=== PATIENT | male | born 1995 | race Caucasian/White ===

== ENCOUNTER 2016-10-18 17:35 | Inpatient (IN) | payer MEDICAID ==
[~2016-10-18] VITALS: Ht 198.1 cm; Wt 107.6 kg
[2016-10-18 17:40] VITALS: O2SAT 100
[2016-10-18 17:47] VITALS: O2SAT 100
[2016-10-18] MEDS ORDERED: MORPHINE SULFATE 8 MG/ML INJ ONE ×2 (17:48→19:52)
[2016-10-18 18:00] LABS: AUTOMATED NEUTROPHIL # 4.1 TH/MM3 (1.8-7.7); BASOPHIL # 0.1 TH/MM3 (0-0.2); BASOPHIL % 1.2 % (0.0-2.0); EOSINOPHIL # 0.1 TH/MM3 (0-0.4); EOSINOPHIL % 0.8 % (0.0-4.0); HEMATOCRIT 42.8 % (39.0-51.0); HEMO FLAGS DIFF FINAL; LYMPH % 16.8 % (9.0-44.0); LYMPHOCYTE # 1.1 TH/MM3 (1.0-4.8); MEAN CELL VOLUME 87.3 FL (80.0-100.0); MEAN CORPUSCULAR HGB CONC 35.5 % (32.0-36.0); MONO % 16.5 % (0.0-8.0); NEUT % 64.7 % (16.0-70.0); PLATELET COUNT 143 TH/MM3 (150-450); RED BLOOD COUNT 4.91 MIL/MM3 (4.50-5.90); RED CELL DISTRIBUTION WIDTH 12.7 % (11.6-17.2); WHITE BLOOD COUNT 6.3 TH/MM3 (4.0-11.0)
[2016-10-18 18:03] LABS: I-STAT POTASSIUM 4.6 MMOL/L (3.5-4.9)
[2016-10-18 18:12] LABS: APTT (PATIENT) 22.9 SEC (24.3-30.1); INTERNATIONAL NORMALIZED RATIO 1.1 RATIO; PROTHROMBIN TIME - PATIENT 12.2 SEC (9.8-11.6)
--- NOTE | 2016-10-18 18:26 | RADRPT ---
EXAM DATE/TIME: 10/18/2016 17:53 [facility] COMPARISON: No previous studies available for comparison. INDICATIONS : Fell off trampoline hit right side of head. RADIATION DOSE: 55.42 CTDIvol (mGy) MEDICAL HISTORY : Unable to obtain SURGICAL HISTORY : Unable to obtain ENCOUNTER: Initial ACUITY: 1 day PAIN SCALE: 2/10 LOCATION: cranial TECHNIQUE: Multiple contiguous axial images were obtained of the head. Using automated exposure control and adj ustment of the mA and/or kV according to patient size, radiation dose was kept as low as reasonably a chievable to obtain optimal diagnostic quality images. DICOM format image data is available electro nically for review and comparison. FINDINGS: CEREBRUM: The ventricles are normal for age. No evidence of midline shift, mass lesion, hemorrhage or acute in farction. No extra-axial fluid collections are seen. POSTERIOR FOSSA: The cerebellum and brainstem are intact. The 4th ventricle is midline. The cerebellopontine angle i s unremarkable. EXTRACRANIAL: The visualized portion of the orbits is intact. SKULL: The calvaria is intact. No evidence of skull fracture. CONCLUSION: Normal examination for a patient of this age. Tray Painting MD on October 18, 2016 at 18:22 Board Certified Radiologist. This report was verified electronically.
--- NOTE | 2016-10-18 18:29 | RADRPT ---
EXAM DATE/TIME: 10/18/2016 17:53 [facility] COMPARISON: No previous studies available for comparison. INDICATIONS : Fell off trampoline hit right side of head. RADIATION DOSE: 30.80 CTDIvol (mGy) MEDICAL HISTORY : Unable to obtain SURGICAL HISTORY : Unable to obtain ENCOUNTER: Initial ACUITY: 1 day PAIN SCALE: 2/10 LOCATION: cranial TECHNIQUE: Volumetric scanning of the cervical spine was performed. Multiplanar reconstructions in the sagittal, coronal and oblique axial planes were performed. Using automated exposure control and adjustment o f the mA and/or kV according to patient size, radiation dose was kept as low as reasonably achievable to obtain optimal diagnostic quality images. DICOM format image data is available electronically f or review and comparison. FINDINGS: VERTEBRAE: Normal vertebral body height. ALIGNMENT: No evidence of subluxation. C2-C3: The bony spinal canal is normal in size. No evidence of disc bulge or herniation. The neural forami na are bilaterally patent. C3-C4: The bony spinal canal is normal in size. No evidence of disc bulge or herniation. The neural forami na are bilaterally patent. C4-C5: The bony spinal canal is normal in size. No evidence of disc bulge or herniation. The neural forami na are bilaterally patent. C5-C6: The bony spinal canal is normal in size. No evidence of disc bulge or herniation. The neural forami na are bilaterally patent. C6-C7: The bony spinal canal is normal in size. No evidence of disc bulge or herniation. The neural forami na are bilaterally patent. C7-T1: The bony spinal canal is normal in size. No evidence of disc bulge or herniation. The neural forami na are bilaterally patent. CONCLUSION: Normal examination. Tray Painting MD on October 18, 2016 at 18:25 Board Certified Radiologist. This report was verified electronically.
[2016-10-18 18:30] VITALS: BP 171/79; PULSE 85; RESP 18; O2SAT 100
--- NOTE | 2016-10-18 18:36 | RADRPT ---
EXAM DATE/TIME: 10/18/2016 17:28 [facility] COMPARISON: No previous studies available for comparison. INDICATIONS : Trauma fell off trampoline. MEDICAL HISTORY : None. SURGICAL HISTORY : None. ENCOUNTER: Initial ACUITY: 1 day PAIN SCORE: 3/10 LOCATION: Bilateral chest FINDINGS: A single view of the chest demonstrates the lungs to be symmetrically aerated without evidence of mas s, infiltrate or effusion. The cardiomediastinal contours are unremarkable. Osseous structures are intact. CONCLUSION: Normal examination. Tray Painting MD on October 18, 2016 at 18:34 Board Certified Radiologist. This report was verified electronically.
--- NOTE | 2016-10-18 18:36 | RADRPT ---
EXAM DATE/TIME: 10/18/2016 17:28 [facility] COMPARISON: No previous studies available for comparison. INDICATIONS : Trauma fell off trampoline. MEDICAL HISTORY : None. SURGICAL HISTORY : None. ENCOUNTER: Initial ACUITY: 1 day PAIN SCORE: 3/10 LOCATION: Pelvis. FINDINGS: A single frontal view of the pelvis demonstrates no evidence of fracture. The bony pelvic ring is in tact. Bony mineralization is normal. The soft tissues are intact. CONCLUSION: Unremarkable examination of the pelvis. Tray Painting MD on October 18, 2016 at 18:34 Board Certified Radiologist. This report was verified electronically.
--- NOTE | 2016-10-18 19:04 | PD.CONS ---
HPI Service neurosurery Consult Requested By Dr Rahman Primary Care Physician No Primary Care Physician Past Family Social History Active Ordered Medications Current Medications Morphine Sulfate (Morphine Inj) 8 mg STK-MED ONCE .ROUTE ; Start 10/18/16 at 17: 48; Stop 10/18/16 at 17:49; Status DC Physical Exam Vital Signs Vital Signs Date Time Temp Pulse Resp B/P Pulse Ox O2 Delivery O2 Flow Rate FiO2 10/18/16 17:47 100 3.00 Laboratory Laboratory Tests Test 10/18/16 17:40 White Blood Count 6.3 Red Blood Count 4.91 Hemoglobin 15.2 Bedside Hemoglobin 15.0 Hematocrit 42.8 Bedside Hematocrit 44.0 Mean Corpuscular Volume 87.3 Mean Corpuscular Hemoglobin 31.0 Mean Corpuscular Hemoglobin 35.5 Concent Red Cell Distribution Width 12.7 Platelet Count 143 Mean Platelet Volume 12.3 Neutrophils (%) (Auto) 64.7 Lymphocytes (%) (Auto) 16.8 Monocytes (%) (Auto) 16.5 Eosinophils (%) (Auto) 0.8 Basophils (%) (Auto) 1.2 Neutrophils # (Auto) 4.1 Lymphocytes # (Auto) 1.1 Monocytes # (Auto) 1.0 Eosinophils # (Auto) 0.1 Basophils # (Auto) 0.1 CBC Comment DIFF FINAL Differential Comment Prothrombin Time 12.2 Prothromb Time International 1.1 Ratio Activated Partial 22.9 Thromboplast Time Bedside Sodium 142 Bedside Potassium 4.6 Bedside Chloride 103 Bedside Blood Urea Nitrogen 16 Bedside Creatinine 1.1 Bedside Glucose 94 Blood Type O POSITIVE Antibody Screen NEGATIVE Result Diagram: 10/18/161739 Imaging Last Impressions Pelvis X-Ray 10/18/161746 Signed Impressions: Service Date/Time: Tuesday, October 18, 2016 17:28 - CONCLUSION: Unremarkable examination of the pelvis. Tray Painting MD Head CT 10/18/161746 Signed Impressions: Service Date/Time: Tuesday, October 18, 2016 17:53 - CONCLUSION: Normal examination for a patient of this age. Tray Painting MD Chest X-Ray 10/18/161746 Signed Impressions: Service Date/Time: Tuesday, October 18, 2016 17:28 - CONCLUSION: Normal examination. Tray Painting MD Cervical Spine CT 10/18/161746 Signed Impressions: Service Date/Time: Tuesday, October 18, 2016 17:53 - CONCLUSION: Normal examination. Tray Painting MD Attending Statement Neuro. Continue neuro checks in a serial fashion. A follow-up CT MRI C spine will be obtained Pulmonary. aggressive pulmonary toilette, nasotracheal suction, and breathing treatments with nebulizers. Daily PT and OT Nutrition. Tolerating Oral diet Renal. monitor closely urine output, BUN and creatinine Endocrine. Monitor serial Acu checks and SSI as needed in detail ID monitor for signs of infection Protonix for stress ulcer prophylaxis Finesse hose and SCD's for DVT prophylaxis Mynor Mcclain MD Oct 18, 2016 19:04
--- NOTE | 2016-10-18 19:15 | PD ---
HPI Chief Complaint: Trauma (Alert) Time Seen by Provider: 17:39 Travel History International Travel<30 days: No Contact w/Intl Traveler<30days: No History of Present Illness HPI This is a patient who presents to the emergency department having been jumping on a trampoline at his work. He fell off the trampoline and landed on a concrete surface where he hit his back and neck. He did Lose consciousness for several seconds and then woke back up. He drove himself home but when he got home he started to feel paresthesias in the right side of his body extending from his chest all the way down to his legs associated with some moderate severity pain, constant. He also feels weak in the right arm and right leg. He also has some spots in his vision affecting his right eye. [facility] Past Medical History Medical History: Denies Significant Hx Social History Alcohol Use: No Substance Use: No Review of Systems Except as stated in HPI: all other systems reviewed are Neg Physical Exam Narrative GENERAL:Well appearing, no acute distress SKIN: Focused skin assessment warm and dry. HEAD: Atraumatic. Normocephalic. EYES: Pupils equal and round. No injection or drainage. ENT: Moist mucous membranes NECK: Trachea midline. Cervical collar is in place. CARDIOVASCULAR: Regular rate and rhythm. No murmur appreciated. RESPIRATORY: Clear to auscultation. Breath sounds equal bilaterally. GASTROINTESTINAL: Abdomen soft, non-tender, nondistended. MUSCULOSKELETAL: No obvious deformities. NEUROLOGICAL: Awake and alert. No obvious cranial nerve deficits. 4+ out of 5 strength in the right upper and right lower extremity, decreased sensation to light touch in the right upper chest and right lower extremity. PSYCHIATRIC: Appropriate mood and affect; insight and judgment normal. Data Data Last Documented VS Vital Signs Date Time Temp Pulse Resp B/P Pulse Ox O2 Delivery O2 Flow Rate FiO2 10/18/16 17:47 100 3.00 Orders Ed Poc Ultrasound (10/18/16 ) I-Stat Profile (10/18/16 17:47) I-Stat Creatinine (10/18/16 17:47) Complete Blood Count With Diff (10/18/16 17:47) Prothrombin Time / Inr (Pt) (10/18/16 17:47) Act Partial Throm Time (Ptt) (10/18/16 17:47) Type And Screen (10/18/16 17:47) Chest, Single Ap (10/18/16 17:47) Pelvis, Ap Only (Routine) (10/18/16 17:47) Ct Brain W/O Iv Contrast(Rout) (10/18/16 17:47) Ct Cerv Spine W/O Contrast (10/18/16 17:47) Iv Access Insert/Monitor (10/18/16 17:47) Ecg Monitoring (10/18/16 17:47) Oximetry (10/18/16 17:47) Oxygen Administration (10/18/16 17:47) Morphine Inj (Morphine Inj) (10/18/16 17:48) Admit Order (Ed Use Only) (10/18/16 18:49) Labs Laboratory Tests Test 10/18/16 17:40 White Blood Count 6.3 TH/MM3 Red Blood Count 4.91 MIL/MM3 Hemoglobin 15.2 GM/DL Bedside Hemoglobin 15.0 G/DL Hematocrit 42.8 % Bedside Hematocrit 44.0 % Mean Corpuscular Volume 87.3 FL Mean Corpuscular Hemoglobin 31.0 PG Mean Corpuscular Hemoglobin 35.5 % Concent Red Cell Distribution Width 12.7 % Platelet Count 143 TH/MM3 Mean Platelet Volume 12.3 FL Neutrophils (%) (Auto) 64.7 % Lymphocytes (%) (Auto) 16.8 % Monocytes (%) (Auto) 16.5 % Eosinophils (%) (Auto) 0.8 % Basophils (%) (Auto) 1.2 % Neutrophils # (Auto) 4.1 TH/MM3 Lymphocytes # (Auto) 1.1 TH/MM3 Monocytes # (Auto) 1.0 TH/MM3 Eosinophils # (Auto) 0.1 TH/MM3 Basophils # (Auto) 0.1 TH/MM3 CBC Comment DIFF FINAL Differential Comment Prothrombin Time 12.2 SEC Prothromb Time International 1.1 RATIO Ratio Activated Partial 22.9 SEC Thromboplast Time Bedside Sodium 142 MMOL/L Bedside Potassium 4.6 MMOL/L Bedside Chloride 103 MMOL/L Bedside Blood Urea Nitrogen 16 MG/DL Bedside Creatinine 1.1 MG/DL Bedside Glucose 94 MG/DL Blood Type O POSITIVE Antibody Screen NEGATIVE MDM Medical Screen Exam Complete: Yes Emergency Medical Condition: Yes Differential Diagnosis Cervical spine fracture, cervical spine contusion, subdural hematoma, epidural hematoma, subarachnoid hemorrhage Narrative Course This is a patient who presents to the emergency department with an injury falling off a trampoline. He has objective neurologic deficits on exam. IV access was established in the trauma bay. Chest x-ray and pelvic film were obtained which were reassuring. Patient was transferred to CT where her head and cervical spine CTs were reassuring. Patient will be admitted to the intensive care unit per Dr. Mcclain for close monitoring in the setting of a possible cervical spine injury and MRI will be obtained. Trauma Alert - Level One Trauma Alert Level One: Full trauma team activate, Patient evaluated, Trauma surgeon summoned Time Surgeon Summoned: 17:23 Physician Communication Discussed with Dr. Beltre and Dr. Mcclain Diagnosis Diagnosis: Primary Impression: Numbness and tingling Admitting Physician Requests: Admit Yenni Rahman MD Oct 18, 2016 19:15
[2016-10-18 19:27] VITALS: BP 148/77; PULSE 78; RESP 20; O2SAT 100
[2016-10-18] MEDS ORDERED: MISCELLANEOUS NURSING INFORMATION XX SCH (19:45)
[2016-10-18] MEDS ORDERED: ENALAPRILAT 1.25 MG/ML VIAL IV PRN (19:45)
[2016-10-18] MEDS ORDERED: ONDANSETRON HCL 4 MG/2 ML VIAL IV PRN (19:45)
[2016-10-18] MEDS ORDERED: ACETAMINOPHEN 325 MG TAB PO PRN (19:45)
[2016-10-18] MEDS ORDERED: MAGNESIUM HYDROXIDE SUSP 30 ML CUP PO PRN (19:45)
[2016-10-18] MEDS ORDERED: SODIUM CHLORIDE 0.9% FLUSH 10 ML FLUSH IV FLUSH PRN (19:45)
[2016-10-18] MEDS ORDERED: MORPHINE SULFATE 4 MG/ML INJ IV PRN (19:45)
[2016-10-18] MEDS ORDERED: CHLORHEXIDINE GLUCONATE 2 % 1 PACK (2 CLOTHS) TOP PRN (19:45)
[2016-10-18 19:51] VITALS: O2SAT 98
[2016-10-18] MEDS ORDERED: DOCUSATE SODIUM 100 MG CAP PO SCH (21:00)
[2016-10-18] MEDS ORDERED: BACITRACIN TOP OINT 15 GM TUBE TOP SCH (21:00)
--- NOTE | 2016-10-18 21:40 | RADRPT ---
EXAM DATE/TIME: 10/18/2016 20:36 [facility] COMPARISON: No previous studies available for comparison. INDICATIONS : Radiculopathy. Fell off trampoline hit right side of head. MEDICAL HISTORY : None. SURGICAL HISTORY : None. ENCOUNTER: Subsequent ACUITY: 1 day PAIN SCORE: 0/10 LOCATION: TECHNIQUE: Multiplanar, multisequence MRI examination of the cervical spine was performed. FINDINGS: VERTEBRAE: Normal vertebral body height. Homogeneous marrow signal. ALIGNMENT: No evidence of subluxation. CORD: Normal configuration and signal. POST FOSSA: The cerebellar tonsils are normal in position. C2-C3: The thecal sac has a normal configuration. There is no evidence of disc herniation or spinal canal s tenosis. The neural foramina are patent bilaterally. C3-C4: There is a tiny right lateral disc bulge or protrusion with mild encroachment on the right lateral re cess and neural foramen. C4-C5: The thecal sac has a normal configuration. There is no evidence of disc herniation or spinal canal s tenosis. The neural foramina are patent bilaterally. C5-C6: The thecal sac has a normal configuration. There is no evidence of disc herniation or spinal canal s tenosis. The neural foramina are patent bilaterally. C6-C7: The thecal sac has a normal configuration. There is no evidence of disc herniation or spinal canal s tenosis. The neural foramina are patent bilaterally. C7-T1: The thecal sac has a normal configuration. There is no evidence of disc herniation or spinal canal s tenosis. The neural foramina are patent bilaterally. CONCLUSION: 1. Small right lateral disc bulge or protrusion at C3-4 with mild encroachment on the right lateral r ecess and neural foramen. Slight reversal of normal cervical lordosis. No fracture or spondylolisthes is. No cord impingement or canal stenosis. Tray Painting MD on October 18, 2016 at 21:35 Board Certified Radiologist. This report was verified electronically.
[2016-10-18 22:00] VITALS: PULSE 85
[2016-10-18] MEDS ORDERED: PANTOPRAZOLE SODIUM 40 MG VIAL IVP SCH (22:00)
[2016-10-18] MEDS: SODIUM CHLOR 0.9% 1000 ML INJ 1,000 ML IV SCH (22:04)
--- NOTE | 2016-10-18 22:36 | MH ---
cc: HOLLIE LEARY MD DATE OF ADMISSION 10/18/2016 CHIEF COMPLAINT Trauma alert HISTORY OF PRESENT ILLNESS The patient is a 21-year-old male who was brought to [facility] as a trauma alert by EMS. The patient's criteria was that he had fallen from height. Per EMS report and Patent history, he fell off a trampoline and landed on a concrete surface and hit his head and back. He lost consciousness for a brief period of time. The patient declined medical evaluation, drove himself home and then developed peristalsis on his right side as well as some complaint of weakness as well as seeing spots in his right eye. Due to these symptoms, he called 9-1-1. The patient was hemodynamically stable, GCS 15, moving all extremities grossly in transport. This patient was found to have intact airway breathing and circulation upon evaluation. The patient denies any shortness of breath, chest pain or abdominal pain. PAST MEDICAL HISTORY The patient denies. PAST SURGICAL HISTORY None. REVIEW OF SYSTEMS Negative except for pertinent positives mentioned above in the history of present illness. SOCIAL HISTORY The patient denies alcohol, tobacco or drug use. FAMILY HISTORY Noncontributory. ALLERGIES No known drug allergies. MEDICATIONS No home medications. PHYSICAL EXAMINATION VITAL SIGNS: Pulse ox 100%. The patient is normotensive and heart rate is less than 100. GENERAL: The patient is a well-developed, well-nourished male in no acute distress. HEENT: Head normocephalic, atraumatic. Pupils round, react and accommodate to light. Sclerae anicteric. Oral cavity is clear. Airway is patent. No scalp lacerations. Face is stable. There is no malocclusion. Cervical collar is in place. The patient has tenderness in the midline of cervical spine without deformity. Trachea is midline. No JVD. CHEST: Chest wall clear without deformity. Breath sounds present bilaterally. HEART: Regular rate and rhythm. ABDOMEN: Soft, nondistended. No organomegaly. No seatbelt sign. PELVIS: Stable without deformity. EXTREMITIES: No clubbing, cyanosis or edema. No deformity of the four extremities. BACK: No thoracic or lumbar tenderness. Sensation intact. NEUROLOGIC: The patient has GCS 15. The patient describes decreased vision in the right eye. The patient has sensation four extremities. 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 Cranial nerves II-XII grossly intact. LABORATORY FINDINGS Hemoglobin 15.2. IMAGING STUDIES CT scan of the patient's head is negative for intracranial injury. CT scan of the patient's cervical spine is negative for fracture. Chest x-ray no acute process. The pelvis was no fracture. ASSESSMENT AND PLAN This is a 23-year-old male status post fall from a trampoline, positive LOC, now with right-sided vision changes, right-sided paresthesias and weakness. Patient is hemodynamically stable. Airway is patent. 1. Injuries - Concussion. CT scan the patient's head is negative. We will place the patient in observation and perform neuro monitoring and neuro checks 2. Paresthesias and right-sided weakness as well as potential vision changes. We will obtain neurosurgical consultation urgently and Dr. Mcclain did come evaluate the patient. At this time, he recommended MRI for further evaluation. We will order MRI of the cervical spine with contrast Stat for further evaluation. We will maintain the patient in log wall only with activity with a cervical collar in place. We will give appropriate pain medications as needed and supportive care. MD FLAKITO Brizuela/ /9:42 PM /10:14 PM
[2016-10-19] VITALS (10 sets, daily range): BP systolic 126–136; BP diastolic 56–78; PULSE 48–83; RESP 12–22; TEMP 97.5–98.6; O2SAT 96–99
[2016-10-19] MEDS ORDERED: ACETAMINOPHEN 1000 MG/100 ML VIAL IV ONE (00:30)
[2016-10-19] MEDS ORDERED: CHLORHEXIDINE GLUCONATE 2 % 1 PACK (2 CLOTHS) TOP SCH (04:00)
[2016-10-19 04:47] LABS: AUTOMATED NEUTROPHIL # 2.8 TH/MM3 (1.8-7.7); BASOPHIL # 0.1 TH/MM3 (0-0.2); BASOPHIL % 1.2 % (0.0-2.0); EOSINOPHIL # 0.1 TH/MM3 (0-0.4); EOSINOPHIL % 1.1 % (0.0-4.0); HEMATOCRIT 44.6 % (39.0-51.0); HEMO FLAGS DIFF FINAL; LYMPH % 26.6 % (9.0-44.0); LYMPHOCYTE # 1.4 TH/MM3 (1.0-4.8); MEAN CORPUSCULAR HEMOGLOBIN 30.3 PG (27.0-34.0); MONO % 19.8 % (0.0-8.0); NEUT % 51.3 % (16.0-70.0); PLATELET COUNT 133 TH/MM3 (150-450); RED BLOOD COUNT 5.01 MIL/MM3 (4.50-5.90); RED CELL DISTRIBUTION WIDTH 12.8 % (11.6-17.2); WHITE BLOOD COUNT 5.4 TH/MM3 (4.0-11.0)
[2016-10-19 05:07] LABS: BICARBONATE 24.2 MEQ/L (21.0-32.0); POTASSIUM 3.8 MEQ/L (3.5-5.1)
[2016-10-19] MEDS: SODIUM CHLOR 0.9% 1000 ML INJ 1,000 ML IV SCH (07:00)
[2016-10-19] MEDS ORDERED: DOCUSATE SODIUM 50 MG/SENNA 8.6 MG TAB PO SCH (09:00)
[2016-10-19] MEDS ORDERED: ACETAMINOPHEN/HYDROcodone 325 MG/5 MG TAB PO PRN (09:30)
[2016-10-19] MEDS ORDERED: traMADol HCL 50 MG TAB PO PRN (09:30)
[2016-10-19] MEDS ORDERED: METHOCARBAMOL 500 MG TAB PO SCH (10:00)
--- NOTE | 2016-10-19 12:46 | RADRPT ---
EXAM DATE/TIME: 10/19/2016 12:19 [facility] COMPARISON: No previous studies available for comparison. INDICATIONS : Sharp pain on right side when turning neck since yesterday. MEDICAL HISTORY : None. SURGICAL HISTORY : None. ENCOUNTER: Subsequent ACUITY: 2 days PAIN SCORE: 7/10 LOCATION: lateral neck FINDINGS: Flexion and extension views of the cervical spine were performed. The alignment of the cervical vert ebral bodies is maintained in flexion and extension and there is no evidence of subluxation. The pre vertebral soft tissues are normal in thickness. CONCLUSION: Unremarkable flexion and extension examination of the cervical spine. Del Herrera MD on October 19, 2016 at 12:44 Board Certified Radiologist. This report was verified electronically.
--- NOTE | 2016-10-19 13:19 | HHI.CCPN ---
Subjective Brief History 21-year-old male fell off the trampoline and hit his head against the concrete Complaining about pain in the neck and apparently some initial paresthesia which now disappeared Patient had the Bowie J collar placed underwent CT and MRI of the spine both of which are negative for major injury Patient remained in the ICU overnight 24 Hour Review/Hospital Course This morning patient is awake alert oriented neurologically fully intact Motoric fully intact with normal strength bilateral Cessation bilateral preserved Normal deep tendon reflexes no pathologic reflexes Flexion-extension C-spine no abnormality DC patient today with follow-up when necessary with neurosurgery Objective Vital Signs Date Time Temp Pulse Resp B/P Pulse Ox O2 Delivery O2 Flow Rate FiO2 10/19/16 12:00 97.5 61 12 133/63 96 10/19/16 08:00 Room Air 10/19/16 07:26 21 10/18/16 19:27 4 Intake and Output 10/18/16 10/18/16 10/19/16 08:00 16:00 00:00 Intake Total 170 ml Balance 170 ml Result Diagram: 10/19/16 0347 10/19/16 0347 Imaging Last 24 hours Impressions Cervical Spine X-Ray 10/19/16 0000 Signed Impressions: Service Date/Time: Wednesday, October 19, 2016 12:19 - CONCLUSION: Unremarkable flexion and extension examination of the cervical spine. Del Herrera MD Pelvis X-Ray 10/18/161746 Signed Impressions: Service Date/Time: Tuesday, October 18, 2016 17:28 - CONCLUSION: Unremarkable examination of the pelvis. Tray Painting MD Head CT 10/18/161746 Signed Impressions: Service Date/Time: Tuesday, October 18, 2016 17:53 - CONCLUSION: Normal examination for a patient of this age. Tray Painting MD Chest X-Ray 10/18/161746 Signed Impressions: Service Date/Time: Tuesday, October 18, 2016 17:28 - CONCLUSION: Normal examination. Tray Painting MD Cervical Spine CT 10/18/161746 Signed Impressions: Service Date/Time: Tuesday, October 18, 2016 17:53 - CONCLUSION: Normal examination. Tray Painting MD Exam [employer] Motoric fully intact with normal strength bilateral Cessation bilateral preserved Normal deep tendon reflexes no pathologic reflexes Flexion-extension C-spine no abnormality DC patient today with follow-up when necessary with neurosurgery Hemodynamic/Cardiac Hemodynamically stable Pulmonary/Respiratory Bilateral good breath sounds Abdomen/GI Nutrition Abdomen soft Assessment and Plan Attestation In the face of normal CT scan of the neck and C-spine, no major traumatic abnormality on MRI and normal flexion and extension views, patient will be discharged with soft collar and follow-up with neurosurgery Critical care 35 minutes Milton Lees MD Oct 19, 2016 13:19
[2016-10-19] MEDS ORDERED: HYDR-3516 PO (13:29)
[2016-10-19] MEDS ORDERED: METH500T3 PO (13:33)
--- NOTE | 2016-10-19 13:45 | HHI.DS ---
Discharge Summary Admission Date Oct 18, 2016 at 18:53 Discharge Date: Oct 19, 2016 Admitting Diagnosis numbness and weakness CBC/BMP: 10/19/16 0347 10/19/16 0347 Significant Findings Laboratory Tests Test 10/18/16 10/19/16 17:40 03:47 Platelet Count 143 TH/MM3 133 TH/MM3 (150-450) (150-450) Mean Platelet Volume 12.3 FL 11.4 FL (7.0-11.0) (7.0-11.0) Monocytes (%) (Auto) 16.5 % 19.8 % (0.0-8.0) (0.0-8.0) Monocytes # (Auto) 1.0 TH/MM3 1.1 TH/MM3 (0-0.9) (0-0.9) Prothrombin Time 12.2 SEC (9.8-11.6) Activated Partial 22.9 SEC Thromboplast Time (24.3-30.1) Estimat Glomerular Filtration 65 ML/MIN (>89) Rate PE at Discharge GENERAL: well-nourished, well developed with Pratt J collar on. SKIN: Warm and dry. HEAD: Atraumatic. Normocephalic. EYES: PERRL. ENT: No nasal bleeding or discharge. Mucous membranes pink and moist. NECK: Trachea midline. No JVD. CARDIOVASCULAR: Regular rate and rhythm. RESPIRATORY: No accessory muscle use. Lungs clear to auscultation. Breath sounds equal bilaterally. GASTROINTESTINAL: Abdomen soft, non-tender, nondistended. + BS. MUSCULOSKELETAL: Extremities without cyanosis, or edema. No obvious deformities. NEUROLOGICAL: Awake and alert. Normal speech. Hospital Course [place]: Jumping on a trampoline and fell off landing on his back and striking his head on the concrete. + LOC. Initially declined medical care, then developed paresthesias, weakness and pain on his right arm. INJURIES: Concussion RIGHT visual changes Diet: Regular Pulm: IS Pain: Roaxin, Tramadol 50q4, [place] Activity: OOB. PT and OT ordered. GI:IV Protonix Bowel: Delfina-colace 2 tabs. DVT: SCDs Concussion RIGHT visual changes Pt Condition on Discharge: Stable Discharge Disposition: Discharge Home Discharge Instructions DIET: Follow Instructions for: As Tolerated, No Restrictions Activities you can perform: Full Weight Bearing Activities to Avoid: Driving for 24 hrs, Concussion Sports Other Activity Instructions: Avoid second head injury. Wear soft cervical collar for comfort. Lai Tejada Oct 19, 2016 13:44
== END 2016-10-19 16:13 | disposition home or self-care (01) | DRG 90 ==
LOC: NEPI 17:35 → NEDA 18:53 → EDBD 18:53 → N03B 21:08
PROVIDERS: ADMIT Surgery; ATTEND Surgery
DX: S06.0X9A Concussion with loss of consciousness of unspecified duration, initial encounter (principal); R20.9 Unspecified disturbances of skin sensation; W17.89XA Other fall from one level to another, initial encounter; Y93.44 Activity, trampolining; Y92.9 Unspecified place or not applicable
CPT/HCPCS: 70450; 71010; 72040; 72125; 72141; 72170; 80048; 82435; 82565; 82947; 84132; 84295; 84520; 85025; 85610; 85730; 86850; 86900; 86901; 87641; 94150; C9113; J0131; J2270; J7030; L0120; L0172

== ENCOUNTER 2017-05-04 08:08 | Emergency (ER) | payer MEDICAID ==
[~2017-05-04] VITALS: Ht 200.7 cm; Wt 110.0 kg
[~2017-05-04 08:08] MED LIST: HYDR-3516 PO; METH500T3 PO
[2017-05-04 08:10] VITALS: BP 167/78; PULSE 90; RESP 14; TEMP 98.2; O2SAT 98
--- NOTE | 2017-05-04 09:01 | PD ---
HPI Chief Complaint: Pain: Acute or Chronic Time Seen by Provider: 08:16 Travel History International Travel<30 days: No Contact w/Intl Traveler<30days: No Traveled to known affect area: No History of Present Illness HPI 21-year-old male came to the emergency room with history of pain in the sacral area for past 4-5 days. Patient says it's worse when he sits or walks. Today he noticed that his pain had suddenly gone away and he had some blood on his underwear. No history of blood in his stool or urine. No history of pain while urinating or defecating. Vital signs otherwise stable. No history of trauma. No radiation of the pain. No history of fever or chills. PFSH Past Medical History Narrative Medical List of his past medical, surgical, social and family history is reviewed from the nursing note. 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 Reported Meds & Prescriptions Reported Meds & Active Scripts Active Bactrim DS (Sulfamethoxazole-Trimethoprim) 800-160 Mg Tab 1 Tab PO BID 10 Days Methocarbamol 500 Mg Tab 500 Mg PO Q8H Hydrocodone-Acetaminophen 5-325 mg Tab 1 Tab PO Q4H PRN Narrative Medication List of his home medications reviewed from the nursing note. Review of Systems Except as stated in HPI: all other systems reviewed are Neg Musculoskeletal: Positive: Pain Physical Exam Narrative GENERAL: Awake, alert, no obvious distress SKIN: Focused skin assessment warm/dry. On the sacral area 1 cm to the left there is surrounding erythema with a central opening with some soft tissue coming out. There is serosanguineous discharge but no fluctuance. His underwear is stained with blood and pus. There is no tenderness upon palpation. HEAD: Atraumatic. Normocephalic. EYES: Pupils equal and round. No scleral icterus. No injection or drainage. ENT: No nasal bleeding or discharge. Mucous membranes pink and moist. NECK: Trachea midline. No JVD. CARDIOVASCULAR: Regular rate and rhythm. No murmur appreciated. RESPIRATORY: No accessory muscle use. Clear to auscultation. Breath sounds equal bilaterally. GASTROINTESTINAL: Abdomen soft, non-tender, nondistended. Hepatic and splenic margins not palpable. MUSCULOSKELETAL: No obvious deformities. No clubbing. No cyanosis. No edema. NEUROLOGICAL: Awake and alert. No obvious cranial nerve deficits. Motor grossly within normal limits. Normal speech. PSYCHIATRIC: Appropriate mood and affect; insight and judgment normal. Data Data Last Documented VS Orders Orders Ed Discharge Order (05/04/17 09:07) [facility] Medical Decision Making Medical Screen Exam Complete: Yes Emergency Medical Condition: Yes Medical Record Reviewed: Yes Differential Diagnosis Ruptured pilonidal abscess Narrative Course 9:14 AM patient was explained about the fact that he probably developed a pilonidal abscess that eventually erupted. The stain on his underwear is blood in the pus that came out of it. At this point I don't see any need to do any further opening since there is no more fluctuance. I will send him home on antibiotic prescription. I've explained him to do the sitz bath as well. Patient understands he'll be discharged. Procedures EKG Prior to Arrival: No Diagnosis Primary Impression: Pilonidal cyst with abscess Referrals: [facility] 3 days Additional Instructions: Take the medication as per the prescription direction. You need to use sitz bath as explained to with lukewarm water and Epsom salt. Emergency your bottom and sit for 20 minutes each time. You should do it at least 4-5 times a day. This helps get the infection cleared sooner. Return to the ER if condition worsens or any other new concerns. Med/Other Pt SpecificInfo: Prescription(s) given Scripts Sulfamethoxazole-Trimethoprim (Bactrim DS) 800-160 Mg Tab 1 TAB PO BID for Infection for 10 Days, #20 TAB 0 Refills Prov: Ayesha Grissom MD 05/04/17 Disposition: 01 DISCHARGE HOME Condition: Stable Ayesha Grissom MD May 04, 2017 09:01
[2017-05-04] MEDS ORDERED: BACT800T5 PO (09:11)
== END 2017-05-04 09:24 | disposition home or self-care (01) ==
LOC: NEPE 08:08
DX: L05.01 Pilonidal cyst with abscess (principal)
CPT/HCPCS: 99283